=== PATIENT | male | born 1955 | race Hispanic/Latino ===

== ENCOUNTER 2018-12-09 13:54 | Outpatient (CLI) | payer MEDICARE, MEDICAID ==
--- NOTE | 2018-12-09 18:30 | ULT ---
ABDOMINAL ULTRASOUND: 12/09/18 HISTORY: Generalized abdominal pain. Multiple longitudinal and transverse images of the abdomen is obtained using a multihertz curvilinear transducer. Real time, color flow and spectral waveform doppler analysis demonstrates the liver to b e unremarkable. No evidence of hepatic parenchymal masses, or lesions seen. No evidence of intrahepat ic biliary dilatation is seen. The gallbladder is unremarkable. No evidence of gallstones seen. The spleen is unremarkable. The visualized portions of the pancreas is unremarkable. Abdominal aorta and inferior vena cava are u nremarkable. Both kidneys are visualized and are unremarkable. Right kidney measures 10.2 and left kidney 10.3 cm from pole to pole. IMPRESSION: Normal abdominal ultrasound. POS: [facility]
== END 2018-12-09 13:55 | disposition home or self-care (01) ==
LOC: ULT 13:54
PROVIDERS: ATTEND Family Medicine
DX: R10.13 Epigastric pain (principal); R10.11 Right upper quadrant pain
CPT/HCPCS: 76700